=== PATIENT | male | born 1965 | race Caucasian/White ===

== ENCOUNTER 2024-09-04 13:28 | Inpatient (IN) | payer OTHER, MEDICAID ==
[~2024-09-04] VITALS: Ht 195.6 cm; Wt 122.9 kg
[2024-09-04 16:56] LABS: BASOPHILS % 0.4 % (0.0-2.0); EOSINOPHILS % 0.8 % (0.0-5.0); HEMATOCRIT. 40.8 % (42.0-52.0); HEMOGLOBIN. 13.5 g/dL (14.0-18.0); LYMPHOCYTES % 14.6 % (20.0-50.0); MEAN CORPUSCULAR HEMOGLOBIN 30.3 pg (28.0-32.0); MEAN CORPUSCULAR HGB CONC 33.2 g/dL (31.0-37.0); MEAN CORPUSCULAR VOLUME 91.4 fL (80.0-94.0); MEAN PLATELET VOLUME 7.7 fl (7.4-10.4); MONOCYTES % 10.3 % (2.0-8.0); NEUTROPHILS % 73.9 % (40.0-76.0); PLATELET 286 x1000/uL (130-400); RED BLOOD CELL COUNT 4.46 mill/uL (4.7-6.1); RED CELL DISTRIBUTION WIDTH 14.1 % (11.6-14.6); WHITE BLOOD COUNT 8.6 x1000/uL (4.5-11.0)
[2024-09-04 17:06] LABS: CHLORIDE 103 mEq/L (98-107); POTASSIUM 4.1 mEq/L (3.5-5.1); SODIUM 136 mEq/L (136-145)
[2024-09-04 17:07] LABS: CALCIUM 9.3 mg/dL (8.7-10.4); CARBON DIOXIDE 29 mEq/L (21-32)
[2024-09-04 17:12] LABS: GLUCOSE 112 mg/dL (70-105); UREA NITROGEN BLOOD 14 mg/dL (9-23)
[2024-09-04 17:13] LABS: TROPONIN I HIGH SENSITIVITY 4 ng/L (3.0-53)
[2024-09-04 17:14] LABS: ALANINE AMINOTRANSFERASE 14 IU/L (10-49); ASPARTATE AMINOTRANSFERASE 11 IU/L (<34); BILIRUBIN DIRECT 0.3 mg/dL (<=3.0); BILIRUBIN TOTAL 0.8 mg/dL (0.1-1.0); PROTEIN TOTAL 7.6 g/dL (6.0-8.3)
[2024-09-04] MEDS: ACETAMINOPHEN 325MG TABLET PO ONE (17:23)
[2024-09-04] MEDS: IBUPROFEN 400MG TABLET PO ONE (17:23)
[2024-09-04] MEDS: LIDOCAINE 5% PATCH TOP SCH (17:23)
[2024-09-04 17:32] LABS: PROTHROMBIN TIME 10.3 sec (9.6-11.0)
[2024-09-04 20:00] VITALS: BP 143/74; PULSE 75; RESP 20; TEMP 36.3; TEMP 37; O2SAT 97
[2024-09-04 20:03] VITALS: BP 143/74; PULSE 75; RESP 20; TEMP 37; O2SAT 97
[2024-09-05] VITALS: BP 138/89; PULSE 63; RESP 19; TEMP 36.3; O2SAT 95
[2024-09-05] MEDS ORDERED: DEXTROSE 50% WATER 50ML SYRINGE IV PRN (01:00)
[2024-09-05] MEDS ORDERED: ACETAMINOPHEN 325MG TABLET PO PRN (01:00)
[2024-09-05] MEDS ORDERED: CLONIDINE 0.1MG TABLET PO PRN (01:00)
[2024-09-05] MEDS ORDERED: ZOLPIDEM TARTRATE 5MG TABLET PO PRN (01:00)
[2024-09-05] MEDS ORDERED: ONDANSETRON HCL 4MG/2ML INJ IV PRN (01:00)
[2024-09-05] MEDS ORDERED: MAGNESIUM/ALUMINUM HYDROXIDE/SIMETHICONE 30ML UDC PO PRN (01:00)
[2024-09-05 03:49] VITALS: BP 117/53; PULSE 59; RESP 19; TEMP 36.2; O2SAT 98
[2024-09-05] MEDS: SODIUM CHLORIDE 0.9% 3ML FLUSH IVF SCH (06:00)
[2024-09-05 08:00] VITALS: BP 145/83; PULSE 75; RESP 16; TEMP 36.7; O2SAT 100
[2024-09-05] MEDS: INSULIN LISPRO 100 UNITS/ML SUBCUT SCH (08:10)
[2024-09-05] MEDS: BLOOD SUGAR DIAGNOSTIC STRIP TEST SCH (08:24)
[2024-09-05] MEDS: FUROSEMIDE 40MG TABLET PO SCH (09:01)
[2024-09-05] MEDS: ENOXAPARIN 30MG/0.3ML SYR SUBCUT SCH (09:01)
[2024-09-05 12:00] VITALS: BP 112/54; PULSE 72; RESP 16; TEMP 36.7; O2SAT 100
[2024-09-05] MEDS: ACETAMINOPHEN 325MG TABLET PO PRN (13:33)
[2024-09-05 16:00] VITALS: BP 120/65; PULSE 70; RESP 16; TEMP 36.4; O2SAT 100
[2024-09-05] MEDS: IBUPROFEN 400MG TABLET PO PRN (17:00)
[2024-09-05 20:00] VITALS: BP 136/70; PULSE 63; RESP 20; TEMP 37; O2SAT 98
[2024-09-06 00:05] VITALS: BP 132/68; PULSE 61; RESP 19; TEMP 36.6; O2SAT 98
[2024-09-06 04:00] VITALS: BP 119/81; PULSE 65; RESP 18; TEMP 36.7; O2SAT 98
[2024-09-06 08:00] VITALS: BP 126/63; PULSE 62; RESP 18; TEMP 36.6; O2SAT 100
[2024-09-06 11:59] VITALS: BP 127/59; PULSE 74; RESP 20; TEMP 36.7; O2SAT 100
[2024-09-06 15:49] VITALS: BP 128/68; PULSE 71; TEMP 97.6; O2SAT 100
[2024-09-06 16:00] VITALS: BP 128/68; PULSE 71; RESP 20; TEMP 36.7; O2SAT 100
== END 2024-09-06 17:38 | disposition home or self-care (01) | DRG 351 ==
LOC: ER 13:28 → EDBEDREQTM 16:54 → EDBEDREQSVC 16:54 → EDBEDREQ 16:54 → ENRESERV 17:21 → 7WST 18:09
PROVIDERS: ADMIT Internal Medicine; ATTEND Internal Medicine
DX: M79.89 Other specified soft tissue disorders (principal); I11.0 Hypertensive heart disease with heart failure; I50.9 Heart failure, unspecified; E11.9 Type 2 diabetes mellitus without complications; E78.00 Pure hypercholesterolemia, unspecified; G89.29 Other chronic pain; Z59.00 Homelessness unspecified
CPT/HCPCS: 36415; 71045; 80048; 80076; 82962; 83036; 83880; 84484; 85025; 93970; 99285; J1650

== ENCOUNTER → 2025-01-07 | Emergency (ER) | payer MEDICAID ==
[~2025-01-07] VITALS: Ht 195.6 cm; Wt 127.0 kg
[~2025-01-07] MED LIST: ACETAMINOPHEN 325MG TABLET PO ONE; BACL-141 MT; IBUP-1455 MT; LIDOCAINE 5% PATCH TOP ONE
[2025-01-07 02:34] VITALS: O2SAT 97
[2025-01-07] MEDS: ACETAMINOPHEN 325MG TABLET PO NR (04:23)
[2025-01-07] MEDS: LIDOCAINE 5% PATCH TOP NR (04:24)
[2025-01-07 04:40] VITALS: BP 155/73; PULSE 67; RESP 17; TEMP 36.8; O2SAT 100
[2025-01-07] MEDS: KETOROLAC 30MG/ML VIAL IM ONE (04:40)
== END ==
LOC: ER 02:09
DX: M47.812 Spondylosis without myelopathy or radiculopathy, cervical region (principal); I87.8 Other specified disorders of veins; I51.9 Heart disease, unspecified; Z98.890 Other specified postprocedural states; W01.10XA Fall on same level from slipping, tripping and stumbling with subsequent striking against unspecified object, initial encounter; Y93.89 Activity, other specified; Y92.89 Other specified places as the place of occurrence of the external cause; Y99.8 Other external cause status
CPT/HCPCS: 99285; 70450; 72125; 96372; J1885; A4606